=== PATIENT | female | born 1980 | race Caucasian/White ===

== ENCOUNTER → 2017-02-04 | Outpatient (CLI) | payer OTHER | LOC: FIMAGING 13:29 | PROVIDERS: ATTEND Midwife | DX: N94.6 Dysmenorrhea, unspecified (principal); N92.6 Irregular menstruation, unspecified; R10.2 Pelvic and perineal pain ==

== ENCOUNTER 2017-04-06 06:59 | Observation (INO) | payer OTHER ==
[2017-04-06] MEDS ORDERED: MIDAZOLAM 2 MG/2 ML VIAL IVP ONE (07:04)
[2017-04-06] MEDS ORDERED: NS 1,000 ML IV ONE (07:04)
[2017-04-06] MEDS ORDERED: HEPARIN 10,000 UNIT/10 ML MDV ONE (07:19)
[2017-04-06] MEDS ORDERED: LIDOCAINE 1% 300 MG/30 ML SDV ONE (07:19)
[2017-04-06] MEDS ORDERED: BUPIVACAINE 0.5% 30 ML SDV ONE (07:19)
[2017-04-06] MEDS ORDERED: ISOPROTERENOL HCL 0.2 MG/ML 5ML AMP ONE (07:19)
--- NOTE | 2017-04-06 07:20 | CPEKG ---
Heart Rate: 67 RR Interval: 896 P-R Interval: 144 QRSD Interval: 106 QT Interval: 432 QTC Interval: 456 P [place]: 67 QRS [place]: 109 T Wave [place]: -2 EKG Severity - ABNORMAL ECG - EKG Impression: SINUS RHYTHM Electronically Signed By: Senthil Baez 06-Apr-2017 13:58:51
[2017-04-06 07:34] LABS: % IMMATURE GRANULYOCYTES 0.2 % (0.0-1.1); ABSOLUTE IMMATURE GRANULOCYTES 0.01 10^3/uL (0.00-0.10); ADD DIFF? NO; ADD MORPH? NO; ADD SCAN? NO; ATYPICAL LYMPHOCYTE FLAG 20 (0-99); FRAGMENT RBC FLAG 0 (0-99); HEMATOCRIT 38.5 % (38.0-47.0); HEMOGLOBIN 13.4 g/dL (12.6-16.3); LEFT SHIFT FLG 0 (0-99); LIPEMIA HEMOLYSIS FLAG 90 (0-99); MEAN CELL HEMOGLOBIN 31.7 pg (27.9-34.1); MEAN CELL HEMOGLOBIN CONCENTR. 34.8 g/dL (32.4-36.7); MEAN PLATELET VOLUME 11.3 fL (8.7-11.7); PLATELET CLUMPS FLAG 40 (0-99); PLATELET COUNT 221 10^3/uL (150-400); RED BLOOD CELL COUNT 4.23 10^6/uL (4.18-5.33); RED CELL DISTRIBUTION WIDTH 12.5 % (11.5-15.2)
[2017-04-06 07:50] LABS: ANION GAP 13 mEq/L (8-16); CALCIUM 9.5 mg/dL (8.5-10.4); CARBON DIOXIDE 18 mEq/l (22-31); CHLORIDE 110 mEq/L (97-110); CREATININE 0.7 mg/dL (0.6-1.0); GLOMERULAR FILTRATION RATE > 60; GLUCOSE 97 mg/dL (70-100); MAGNESIUM 1.8 mg/dL (1.6-2.3); POTASSIUM 3.7 mEq/L (3.5-5.2); SODIUM 141 mEq/L (134-144)
[2017-04-06 07:52] LABS: INR 1.14 (0.83-1.16); PROTIME(PATIENT) 14.5 SEC (12.0-15.0)
[2017-04-06 07:53] LABS: APTT 30.6 SEC (23.0-38.0)
[2017-04-06] MEDS ORDERED: fentaNYL 100 MCG/2 ML INJ ONE (08:16)
[2017-04-06] MEDS ORDERED: ROCURONIUM 100 MG/10 ML VIAL ONE (08:16)
[2017-04-06] MEDS ORDERED: DEXAMETHASONE 4 MG/ML VIAL ONE (08:16)
[2017-04-06] MEDS ORDERED: PROPOFOL/EMULSION 500 MG/50 ML BOTTLE IV ONE ×3 (08:16→11:37)
[2017-04-06] MEDS ORDERED: PHENYLEPHRINE HCL 100 MCG/ML SYR ONE (09:37)
[2017-04-06] MEDS ORDERED: ROCURONIUM 50 MG/5 ML VIAL ONE (10:54)
[2017-04-06] MEDS ORDERED: ONDANSETRON 4 MG/2 ML VIAL ONE (12:18)
[2017-04-06] MEDS ORDERED: NEOSTIGMINE METHYLSULFATE 5 MG/5 ML SYR ONE (12:21)
[2017-04-06] MEDS ORDERED: GLYCOPYRROLATE 0.2 MG/1 ML VIAL ONE ×2 (12:21→12:23)
[2017-04-06] MEDS ORDERED: ATROPINE SULFATE 1 MG/10 ML SYR ONE (12:43)
--- NOTE | 2017-04-06 12:51 | CPEKG ---
Heart Rate: 90 RR Interval: 667 P-R Interval: 120 QRSD Interval: 98 QT Interval: 388 QTC Interval: 475 P [place]: 58 QRS [place]: 110 T Wave [place]: 26 EKG Severity - OTHERWISE NORMAL ECG - EKG Impression: SINUS RHYTHM EKG Impression: BORDERLINE RIGHT AXIS DEVIATION Electronically Signed By: Senthil Baez 06-Apr-2017 13:58:32
[2017-04-06] MEDS ORDERED: ACETAMINOPHEN 325 MG TAB PO PRN (13:59)
[2017-04-06] MEDS ORDERED: ONDANSETRON 4 MG/2 ML VIAL IVP PRN (13:59)
[2017-04-06 14:53] LABS: ANION GAP 10 mEq/L (8-16); CALCIUM 8.5 mg/dL (8.5-10.4); CARBON DIOXIDE 19 mEq/l (22-31); CHLORIDE 114 mEq/L (97-110); CREATININE 0.7 mg/dL (0.6-1.0); GLOMERULAR FILTRATION RATE > 60; GLUCOSE 98 mg/dL (70-100); MAGNESIUM 1.8 mg/dL (1.6-2.3); POTASSIUM 4.5 mEq/L (3.5-5.2); SODIUM 143 mEq/L (134-144)
[2017-04-06 23:06] VITALS: TEMP 97.9
[2017-04-07 04:13] VITALS: O2SAT 96
[2017-04-07 04:42] LABS: % IMMATURE GRANULYOCYTES 0.2 % (0.0-1.1); ABSOLUTE IMMATURE GRANULOCYTES 0.02 10^3/uL (0.00-0.10); ADD DIFF? NO; ADD MORPH? NO; ADD SCAN? NO; ATYPICAL LYMPHOCYTE FLAG 0 (0-99); FRAGMENT RBC FLAG 0 (0-99); HEMATOCRIT 35.6 % (38.0-47.0); HEMOGLOBIN 12.2 g/dL (12.6-16.3); INR 1.25 (0.83-1.16); LEFT SHIFT FLG 0 (0-99); LIPEMIA HEMOLYSIS FLAG 90 (0-99); MEAN CELL HEMOGLOBIN 31.9 pg (27.9-34.1); MEAN CELL HEMOGLOBIN CONCENTR. 34.3 g/dL (32.4-36.7); PLATELET CLUMPS FLAG 0 (0-99); PLATELET COUNT 186 10^3/uL (150-400); PROTIME(PATIENT) 15.7 SEC (12.0-15.0); RED BLOOD CELL COUNT 3.83 10^6/uL (4.18-5.33); RED CELL DISTRIBUTION WIDTH 12.7 % (11.5-15.2)
[2017-04-07 04:52] LABS: ANION GAP 8 mEq/L (8-16); CARBON DIOXIDE 20 mEq/l (22-31); CHLORIDE 110 mEq/L (97-110); CREATININE 0.8 mg/dL (0.6-1.0); GLOMERULAR FILTRATION RATE > 60; GLUCOSE 90 mg/dL (70-100); POTASSIUM 3.6 mEq/L (3.5-5.2); SODIUM 138 mEq/L (134-144)
[2017-04-07 05:00] LABS: CREATINE KINASE-MB FRACTION 0.99 ng/mL (0-3.19); TROPONIN I 0.258 ng/mL (0-0.034)
[2017-04-07 08:33] VITALS: BP 117/73; PULSE 71; RESP 13
[2017-04-07] MEDS ORDERED: ASPIRIN 81 MG CHEWABLE TAB PO SCH (09:00)
--- NOTE | 2017-04-07 09:05 | EPPROC ---
Electrophysiology Procedure Note: ELECTROPHYSIOLOGIC STUDY AND CATHETER MEDIATED ABLATION FOR SUBEUSTACHIAN ISTHMUS DEPENDENT COUNTERCLOCKWISE ATRIAL FLUTTER and TYPICAL SLOW FAST AVNRT: INDICATION: Recurrent atrial flutter PROCEDURES PERFORMED: 30479-64 EP evaluation with RA/RV/LA pace/record, with arrhythmia induction 18817-46 EP evaluation with RA/RV pace record, insert/reposition catheter, with arrhythmia induction 17487 SVT ablation Second arrhythmia 21593 3D mapping Fluoroscopy Catheters & Anesthesia: The patient arrived in the Electrophysiology Laboratory in the fasting state. The right clavicular region, right groin, and left groin area were prepped and draped in the usual sterile manner. Anesthesiologist Dr. Denton administered general anesthesia. Appropriate non-invasive blood pressure, pulse oximetry and end-tidal CO2 monitoring was established. All catheters were placed percutaneously using the modified Seldinger technique , and advanced into position under fluoroscopic guidance. One #7 Serbian deflectable octapolar electrode catheter was advanced to the His-bundle position via the left femoral vein (2mm spacing; except the proximal ring which was 25cm from the tip used for unipolar recordings). One #7 Serbian deflectable catheter with 10 pairs of electrodes was placed via the left femoral vein into the coronary sinus. One # 7 Serbian Halo catheter was inserted through the right femoral vein and was placed at the tricuspid annulus. Heparin was administered to keep ACT > 200 seconds. Programmed stimulation was performed from the right atrium, coronary sinus ( left atrium) and right ventricle. Parahisian pacing demonstrated all retrograde conduction over the AV node. On arrival to the Electrophysiology Laboratory the patient was in sinus rhythm. Atrial flutter, CL 240-250 ms was easily induced by CS pacing. Entrainment mapping from lateral TA, septal TA, proximal CS and distal CS confirmed cavotricuspid isthmus dependent atrial flutter. In preparation for ablation of typical atrial flutter, a high-resolution 3D (3 dimensional) Carto electroanatomical map of the sub-Eustachian isthmus and right atrium was obtained during pacing of the posterolateral coronary sinus. For ablation of typical atrial flutter, one #8.5 SR0 sheath was placed in the right atrium. A #8 Serbian deflectable quadrapolar electrode catheter (2mm-5mm- 2mm spacing) with 3.5 mm irrigated tip electrode and location sensor for the Biosense mapping system was inserted in the long sheath and advanced to the right atrium. Radiofrequency applications were applied between the tricuspid annulus at 0630 oclock as seen in the DIVEHI view and the inferior vena cava. Ablation was difficult due to small isthmus and the CT isthmus being much more inferiorly located than the CS. SR0 and Ramp sheaths, 3.5 mm irrigated catheter and 8 mm non irrigated catheter had to be used. Conduction block was achieved across the CT isthmus. Following ablation of the atrial flutter, programmed atrial stimulation was performed in the baseline state and during infusion of isoproterenol 2 mcg/min. AVNRT was induced. CL 400-420 ms. SL2 sheath was placed and using 3.5 mm irrigated ablation catheter slow pathway ablation was performed. Antegrade conduction over slow AV shorty pathway and AVNRT were eliminated. The catheters were removed. Long sheath was changed to short 9Fr sheath. The patient was transferred to the cardiovascular holding area in stable condition. Vascular access sheaths were removed in the holding area. There were no apparent complications. Results: A. Spontaneous Intervals: Pre ablation SCL 970 ms AH _55_ ms HV 40 ms Post ablation SCL 830 ms AH 55 ms HV 40 ms B. Antegrade AV shorty function (decremental pacing) Pre ablation FPERP 480 ms SPERP 470 ms WBB CL 460 ms (AH jump from 180 ms to 270 ms at FPERP) Post ablation FPERP 450 ms WBB CL 440 ms C. Retrograde AV shorty function (decremental pacing) Pre ablation FPERP 430 ms WBB CL 420 ms CONCLUSIONS: * Cavotricuspid isthmus dependent counterclockwise atrial flutter. * Successful catheter mediated ablation of cavotricuspid isthmus achieving bi- directional conduction block across cavotricuspid isthmus. * Typical (slow/fast) AVNRT. Successful ablation of slow AV shorty pathway eliminating all antegrade conduction over slow AV shorty pathway and inducibility of AVNRT * No atrial arrhythmias inducible post ablation. * No apparent complications. Patient Problems: Problems Problem Status Onset Supraventricular tachycardia Acute Missed with demise before 20 completed weeks of gestation Acute
--- NOTE | 2017-04-07 09:14 | CPEKG ---
Heart Rate: 64 RR Interval: 938 P-R Interval: 164 QRSD Interval: 102 QT Interval: 420 QTC Interval: 434 P [place]: 54 QRS [place]: 102 T Wave [place]: -38 EKG Severity - ABNORMAL ECG - EKG Impression: SINUS RHYTHM EKG Impression: BORDERLINE RIGHT AXIS DEVIATION EKG Impression: NONSPECIFIC T ABNORMALITIES, INFERIOR LEADS Electronically Signed By: Senthil Baez 07-Apr-2017 17:25:21
--- NOTE | 2017-04-07 09:22 | ECHO ---
[id number] + + [address] : : [place] [address] : : [phone] + + Adult Echocardiographic Report + ---+ :Name: CRISTIAN DENISELeroy Date: 04/07/2017 08:04 AM : : Hospital Admission Number: [id number] Location: 215: :: 1980 Gender: Female Height: 72 in : :Age: 36 yrs Race: WH Weight: 162 lb : :Reason For Study: F/U post EP study : : BSA: 1.9 meters2 : + ---+ MMode/2D Measurements \T\ Calculations IVSd: 0.66 cm LVIDd: 5.6 cm FS: 40.1 % Ao root diam: LVPWd: 0.64 cm LVIDs: 3.4 cm EDV(Teich): 3.1 cm 153.6 ml LA dimension: ESV(Teich): 3.4 cm 45.9 ml EF(Teich): 70.1 % LVLd ap4: 8.7 cm SV(MOD-sp4): EDV(MOD-sp4): 72.0 ml 97.0 ml LVLs ap4: 6.8 cm ESV(MOD-sp4): 25.0 ml EF(MOD-sp4): 74.2 % Normal Measurement Values: + + :LVIDd (3.5-5.7cm) IVSd (0.6-1.1cm) LVPWd (0.6-1.1cm) Aortic Root (2.0-3.7cm)Left Atrium (1.5-4.0cm): :LV Vol(d) (76-115ml) LV Vol(s) (29-48ml) Ejec Fraction (50-65%)PV Ron (0.6- 1.2m/s) TV Ron (0.4-1.0m/s) : :MV E Ron (0.8-1.0m/s)MV A Ron (0.3-1.0m/s)LVOT Ron (0.7-1.2m/s) Asc Ao Ron ( 0.9-1.8m/s) : + + Doppler Measurements \T\ Calculations MV E max ron: 77.0 cm/sec Ao V2 max: 108.6 cm/sec TR max ron: 218.5 cm/sec MV A max ron: 40.0 cm/sec Ao max P.7 mmHg TR max P.1 mmHg MV E/A: 1.9 RAP systole: 5.0 mmHg RVSP(TR): 24.1 mmHg Left Ventricle The left ventricle is normal in size. There is normal left ventricular wall thickness. Left ventricular systolic function is normal. Ejection Fraction = 60-65%. No regional wall motion abnormalities noted. Right Ventricle The right ventricle is mildly dilated. The right ventricular systolic function is normal. Atria The left atrial size is normal. The right atrium is mildly dilated. Mitral Valve The mitral valve is normal in structure and function. There is no evidence of mitral valve prolapse. There is no mitral valve stenosis. There is trace mitral regurgitation. Tricuspid Valve Normal tricuspid valve. There is mild tricuspid regurgitation. Right ventricular systolic pressure is normal. Aortic Valve The aortic valve is trileaflet. There is no aortic stenosis. There is no aortic insufficiency. Pulmonic Valve The pulmonic valve is not well visualized. There is no pulmonic valvular regurgitation. Great Vessels The aortic root is normal size. Pericardium/Pleural Trivial anterior pericardial effusion (seen on previous echo 11-02-16). Conclusion A complete two-dimensional transthoracic echocardiogram was performed (2D, M-mode, Doppler and color flow Doppler). Left ventricular systolic function is normal. Ejection Fraction = 60-65%. The right atrium is mildly dilated. There is trace mitral regurgitation. There is mild tricuspid regurgitation. Right ventricular systolic pressure is normal. Trivial anterior pericardial effusion (seen on previous echo 11-02-16). Final Reading Physician: Dr Camila Ferguson electronically signed on 04/07/2017 09:21 AM Ordering Physician: Senthil Baez Performed By: Radha Plata RDCS
--- NOTE | 2017-04-07 19:34 | GDS ---
[f rep st] DISCHARGE SUMMARY DISCHARGE DIAGNOSES: 1. Atrial flutter, status post ablation. 2. Atrioventricular shorty reentry tachycardia, status post ablation. 3. History of pericarditis. 4. Inflammatory arthritis. BRIEF HISTORY: This is a 36-year-old woman with a history of inflammatory arthritis and trace pericardial effusion with pericarditis. She was started on Enbrel for arthritis. She was having symptoms of atrial flutter that were documented on [facility] despite decreased inflammation symptoms after starting Enbrel. Palpitation symptoms were occurring daily. She was referred by Dr. Doss to Dr. Baez for treatment. HOSPITAL COURSE: Dr. Baez performed a successful ablation of the cavotricuspid isthmus, achieving bidirectional block across the cavotricuspid isthmus. Typical AVNRT was induced. Successful ablation of slow AV shorty pathway eliminating all antegrade conduction over the slow AV shorty pathway was achieved. No inducible atrial arrhythmias after the ablation. Overnight, she did well without any bleeding at her groin sites. Vital signs are stable. She has no chest pain or shortness of breath. Groin sites are without bleeding, ecchymosis, or bruit. TESTING DONE: 1. Echocardiogram: Ejection fraction is 60% to 65%. Trace MR. Mild TR. There is trivial anterior pericardial effusion that is unchanged since last echo in October. 2. EKG: Demonstrates sinus rhythm with nonspecific ST flattening which was seen on prior EKGs. LABORATORY DATA: WBC 8.2, hemoglobin 12.2, hematocrit 35.6, platelets 186,000. PT is 15.7, INR is 1.25. Sodium 138, potassium 3.6, chloride 110, bicarb 20, BUN 10, creatinine 0.8, glucose 90. CK 44, CK-MB fraction 0.99, troponin is 0.258; these are elevated and to be expected post ablation. PHYSICAL EXAM: VITAL SIGNS: Blood pressure is 111/55, pulse is 82, respirations 20, temperature 36.6, O2 saturation on room air is 96%. GENERAL: She is alert and oriented in no acute distress, lying in bed. CARDIAC: Regular rate and rhythm without murmur, rub, or gallop. LUNGS: Clear to auscultation. ABDOMEN: Soft AND nontender. Groin sites are without bleeding. EXTREMITIES: Warm. No discoloration. No lower extremity edema. Bilateral + 2 pedal pulses. Discharge medications: See discharge medication reconciliation form. Of note, she will not restart Enbrel for 1 week. Daily aspirin for 6 weeks post ablation. Ibuprofen as needed. DISCHARGE INSTRUCTIONS: Activity restrictions were reviewed, and she was given written instructions at the time of discharge for no lifting over 10 pounds for 1 week, no extended sitting for 6 weeks, and to get up and walk around every 45 minutes for the next 6 weeks. FOLLOWUP: She has a followup with Dr. Baez on April 21, 2017, at 4:00. /[id number]/MODL MTDD
== END 2017-04-07 11:35 | disposition home or self-care (01) ==
LOC: FCATH 06:59 → F2W 12:39
PROVIDERS: ADMIT Internal Medicine Cardiovascular Disease; ATTEND Internal Medicine Cardiovascular Disease
DX: I48.92 Unspecified atrial flutter (principal); I47.1 Supraventricular tachycardia; M06.4 Inflammatory polyarthropathy; L40.9 Psoriasis, unspecified; Z86.79 Personal history of other diseases of the circulatory system; Z79.82 Long term (current) use of aspirin
CPT/HCPCS: 93005; 93306; 93312; 93613; 93621; 93623; 93653; 93655; C1731; C1732; G0378; C1893; J0461; J1100; J1644; J2370; J2405; J2704; J2710; J3010

== ENCOUNTER 2017-04-12 12:39 | Emergency (ER) | payer OTHER ==
--- NOTE | 2017-04-12 12:59 | EDPHY ---
H & P Stated Complaint: cardiac ablation 04/06 for a flutter/continued r leg soreness Time Seen by Provider: 04/12/17 12:58 HPI/ROS: CHIEF COMPLAINT: Right calf pain HISTORY OF PRESENT ILLNESS: The patient presents to the ED with 3 day history of right calf pain. The patient is approximately 1 week status post right groin arterial puncture for a cardiac ablation for symptomatic atrial fibrillation. She has been recovering well. She has no complaints of groin pain, swelling or fever. The patient complains of pain throughout the posterior portion of her calf. The patient denies fever. She denies recent fall or trauma. The patient reports her symptoms are moderate in nature. REVIEW OF SYSTEMS: A comprehensive 10 point review of systems is otherwise negative aside from elements mentioned in the history of present illness. Source: Patient - Personal History LMP (Females 10-55): 1-7 Days Ago Current Tetanus/Diphtheria Vaccine: Yes - Medical/Surgical History Hx Asthma: No Hx Chronic Respiratory Disease: No Hx Diabetes: No Hx Cardiac Disease: Yes Hx Renal Disease: No Hx Cirrhosis: No Hx Alcoholism: No Hx HIV/AIDS: No Hx Splenectomy or Spleen Trauma: No Other PMH: arthritis psoriadic,a flutter/ablation - Social History Smoking Status: Never smoked - Physical Exam Exam: General Appearance: Alert, no distress Eyes: Pupils equal and round no pallor or injection ENT, Mouth: Mucous membranes moist Respiratory: There are no retractions, lungs are clear to auscultation Cardiovascular: Regular rate and rhythm Gastrointestinal: Abdomen is soft and nontender, no masses, bowel sounds normal Neurological: Sensation intact to light touch throughout the right lower extremity, 5/5 strength throughout the right lower extremity Skin: Warm and dry, no rashes Musculoskeletal: Neck is supple nontender Extremities: Right calf tenderness, no asymmetry, 2+ dorsalis pedis and posterior tibial pulses, 2+ popliteal pulse, 2+ femoral pulse Constitutional: Initial Vital Signs Temperature (C) 36.9 C 04/12/17 12:42 Heart Rate 75 04/12/17 12:42 Respiratory Rate 17 04/12/17 12:42 Blood Pressure 115/71 04/12/17 12:42 O2 Sat (%) 99 04/12/17 12:42 O2 Delivery Mode Room Air Allergies/Adverse Reactions: No Known Allergies Allergy (Verified 04/12/17 12:41) Home Medications: Medication Instructions Recorded Aspirin [Aspirin 81mg (*)] 81 mg PO DAILY 04/06/17 Etanercept [Enbrel] 25 mg SQ TU 04/06/17 Herbals/Supplements -Info Only 1 ea PO DAILY 04/06/17 [place]-3 Fatty Acids [Fish Oil 1000 1,000 mg PO DAILY 04/06/17 mg (*)] Medical Decision Making - Diagnostics Imaging Results: Right lower extremity ultrasound: Images reviewed by myself and discussed with radiologist Dr. Lara. Negative for DVT or other explanation for pain. ED Course/Re-evaluation: The patient presents to the emergency department with complaints of acute right calf pain for the past 2 days. The patient has no complaints of chest pain or shortness of breath. She has no vital sign abnormalities. She has minimal tenderness noted on physical exam. There is no clinical evidence of an arterial thrombosis. The patient's groin is well-appearing without evidence of hematoma. The patient has intact distal pulses. The patient is noted to be neurologically intact. The patient was taken for a right lower extremity ultrasound which fortunately demonstrated no evidence of a Cason cyst or DVT. At this point time I do feel the patient can safely be discharged home with instructions to take Tylenol and ibuprofen I have advised her to repeat her ultrasound in 2 weeks for any ongoing symptoms. She should return to the ED sooner for any increasing pain, fever, numbness, weakness or other concerns. Differential Diagnosis: Differential diagnosis considered includes DVT, cellulitis, arterial thrombosis , Cason's cyst, myofascial strain Departure - Departure Disposition: Home, Routine, Self-Care Clinical Impression: Right calf pain Condition: Good Instructions: Musculoskeletal Pain (ED) Additional Instructions: 1. Tylenol as needed for pain. 2. Your ultrasound demonstrates no evidence of a blood clot. Please return to the ED for any worsening symptoms, numbness, weakness or other concerns. 3. I recommend repeating your ultrasound in 2 weeks for any ongoing symptoms. Please schedule a follow-up appointment with your primary care provider for recheck in the week. Referrals: Corin Mejia MD [Primary Care Provider] - As per Instructions
[2017-04-12 14:21] VITALS: BP 110/72; PULSE 71; RESP 16; TEMP 98.1; O2SAT 97
== END 2017-04-12 14:19 | disposition home or self-care (01) ==
DX: M79.661 Pain in right lower leg (principal); Z79.82 Long term (current) use of aspirin

== ENCOUNTER → 2017-07-18 | Outpatient (CLI) | payer OTHER | LOC: BMCIMAGING 14:21 | PROVIDERS: ATTEND Internal Medicine Rheumatology | DX: M54.9 Dorsalgia, unspecified (principal); L40.50 Arthropathic psoriasis, unspecified ==

== ENCOUNTER → 2017-08-10 | Outpatient (CLI) | payer OTHER | LOC: FIMAGING 14:10 | PROVIDERS: ATTEND Internal Medicine | DX: N63.22 Unspecified lump in the left breast, upper inner quadrant (principal); Z80.3 Family history of malignant neoplasm of breast | CPT/HCPCS: G0202; G0204 ==

== ENCOUNTER 2017-08-19 13:02 | Day surgery (SDC) | payer OTHER ==
[2017-08-19] MEDS ORDERED: ceFAZolin 2 GM/SWFI 2 GM/20 ML SYR IVP ONE (13:12)
[2017-08-19] MEDS ORDERED: LR 1,000 ML IV SCH (13:12)
[2017-08-19] MEDS ORDERED: LR 1,000 ML IV ONE (13:13)
[2017-08-19] MEDS ORDERED: LIDOCAINE 1% 300 MG/30 ML SDV ONE ×2 (14:09→15:12)
[2017-08-19] MEDS ORDERED: MIDAZOLAM 2 MG/2 ML VIAL IVP ONE (15:07)
--- NOTE | 2017-08-19 15:07 | PDANEPAE ---
ANE History of Present Illness Breast mass ANE Past Medical History - Cardiovascular History Hx Hypertension: No Hx Arrhythmias: No Hx Chest Pain: No Hx Coronary Artery / Peripheral Vascular Disease: No Hx CHF / Valvular Disease: No Hx Palpitations: No Cardiovascular History Comment: "occ skipped beat" since ablation for flutter and SVT 04-09 - Pulmonary History Hx COPD: No Hx Asthma/Reactive Airway Disease: No Hx Recent Upper Respiratory Infection: No Hx Oxygen in Use at Home: No Hx Sleep Apnea: No Sleep Apnea Screening Result - Last Documented: Negative - Neurologic History Hx Cerebrovascular Accident: No Hx Seizures: No Hx Dementia: No - Endocrine History Hx Diabetes: No - Renal History Hx Renal Disorders: No - Liver History Hx Hepatic Disorders: No - Neurological & Psychiatric Hx Hx Neurological and Psychiatric Disorders: No - Cancer History Hx Cancer: No - Congenital Disorder History Hx Congenital Disorders: No - GI History Hx Gastrointestinal Disorders: No - Other Health History Other Health History: L breast lump. psoriatic arthritis-Enbrel decreases joint swelling. - Chronic Pain History Chronic Pain: Yes - Surgical History Prior Surgeries: D and C x2 '13, 11-16. cardiac ablation,JAVON 04-07- ANE Review of Systems Review of Systems: - Exercise capacity METS (RN): 4 METS ANE Patient History - Allergies Allergies/Adverse Reactions: No Known Allergies Allergy (Verified 08/17/17 13:53) - Home Medications Home medications: home medication list seen and reviewed Home Medications: Aspirin [Aspirin 81mg (*)] 81 mg PO DAILY 04/06/17 [Last Taken 07/08/17] Etanercept [Enbrel] 25 mg SQ TU 04/06/17 [Last Taken 08/05/17] Herbals/Supplements -Info Only 1 ea PO DAILY 04/06/17 [Last Taken Unknown] [place]-3 Fatty Acids [Fish Oil 1000 mg (*)] 1,000 mg PO DAILY 04/06/17 [Last Taken 08/05/17] - NPO status NPO Since - Liquids (Date): 08/19/17 NPO Since - Liquids (Time): 11:00 NPO Since - Solids (Date): 08/18/17 NPO Since - Solids (Time): 21:00 - Anes Hx Anes Hx: no prior problems - Smoking Hx Smoking Status: Never smoked ANE Labs/Vital Signs - Vital Signs Blood Pressure: 120/67 Heart Rate: 56 Respiratory Rate: 16 O2 Sat (%): 96 Height: 185.42 cm Weight: 74.843 kg ANE Physical Exam - Airway Neck exam: FROM Mallampati Score: Class 1 Mouth exam: normal dental/mouth exam - Pulmonary Pulmonary: no respiratory distress - Cardiovascular Cardiovascular: regular rate and rhythym - ASA Status ASA Status: II ANE Anesthesia Plan Anesthesia Plan: MAC
[2017-08-19] MEDS ORDERED: BUPIVACAINE 0.25% 30 ML SDV ONE (15:11)
[2017-08-19] MEDS ORDERED: PROPOFOL/EMULSION 500 MG/50 ML BOTTLE IV ONE (15:12)
[2017-08-19] MEDS: BUPIVACAINE 0.25% 30 ML SDV ONE ×2 (15:56→16:11)
--- NOTE | 2017-08-19 16:25 | POSTANESTH ---
Post Anesthetic Evaluation Cardiovascular Status: Normal, Stable, Similar to Pre-Op Cond (Pt had random PVC 's and PAC's during procedure, stable throughout surgery) Respiratory Status: Normal, Stable Level of Consciousness/Mental Status: Can Participate in Eval, Alert and Oriented Pain Control: Adequate, Prn Tx Ordered Nausea/Vomiting Control: Adequate, Prn Tx Ordered Complications Possibly Related to Anesthesia: None Noted
[2017-08-19] MEDS ORDERED: OXYCODONE/APAP 5/325 TAB PO PRN (16:27)
[2017-08-19] MEDS ORDERED: ONDANSETRON DISINTEGRATING 4 MG TAB PO PRN (16:27)
--- NOTE | 2017-08-19 16:32 | POSTOPPROG ---
Post Op Note Date of Operation: 08/19/17 Surgeon: Abhijeet Santos (, FACS) Anesthesiologist: Abelardo Perdomo MD Anesthesia: Other (Specify) (MAC) Pre-op Diagnosis: left breast mass Post-op Diagnosis: same Procedure: left excisional breast biopsy Findings: left subareolar dense fibroglandular breast tissue Inf/Abcess present in the surg proc area at time of surgery?: No EBL: Minimal (10 ml) Complications: none Specimen(s): left breast tissue UOQ/subareolar
[2017-08-19 16:33] VITALS: TEMP 97.7
[2017-08-19 17:24] VITALS: PULSE 62; RESP 14; O2SAT 97
[2017-08-19] MEDS ORDERED: ONDANSETRON DISINTEGRATING 4 MG TAB ONE (18:04)
[2017-08-19 18:14] VITALS: BP 96/49
[2017-08-19] MEDS ORDERED: SENNOSIDES/DOCUSATE SODIUM TAB PO SCH (21:00)
--- NOTE | 2017-08-19 21:49 | GOP ---
[f rep st] OPERATIVE REPORT DATE OF OPERATION: 08/19/2017 SURGEON: Abhijeet Santos MD, FACS ANESTHESIA: Monitored anesthesia care. ANESTHESIOLOGIST: Vu Perdomo MD PREOPERATIVE DIAGNOSIS: Left breast mass. POSTOPERATIVE DIAGNOSIS: Left breast mass. PROCEDURE PERFORMED: Left excisional breast biopsy. FINDINGS: Dense fibrous fibroglandular tissue in the left subareolar breast tissue at the area of the palpable mass, excised and submitted for permanent section. ESTIMATED BLOOD LOSS: 10 cc. DESCRIPTION OF PROCEDURE: After informed consent was obtained, the patient was brought to the operating room and placed under deep sedation. The left breast was prepped and draped in the usual fashion. The area of the palpable mass was marked on the skin with a marking pen preoperatively and confirmed by the patient. This was a firm narrow ridge of tissue at approximately 2 o'clock position at the areolar border and was nontender with negative findings on imaging. It measured approximately 3 x 5 mm. Before proceeding, a time-out and identification of the patient was performed. 0.25% Marcaine and 1% lidocaine were infiltrated in the subareolar tissues. The areolar border was incised with a scalpel between the approximately 12 and 3 o'clock position and dissection carried out into the subareolar plane. The glandular tissue where the palpable mass was located was grasped with an Allis forceps and further local anesthetic infiltrated into the deep breast tissue centrally in the breast. Approximately 1 x 1 x 1.5 cm wedge of breast tissue was excised in the location of the palpable mass and was observed to be dense fibrous fibroglandular and ductal tissue. I did not bisect the specimen to inspect the interior but submitted it for permanent section. There was no other palpable mass within this quadrant of the breast. Hemostasis was secured with cautery. Subcutaneous tissues were approximated with 3-0 Monocryl suture. Skin was closed with 4-0 Monocryl suture in a subcuticular fashion. Topical Dermabond was applied. The patient was returned to the recovery room in satisfactory condition. Needle, sponge, and instrument count were correct. COMPLICATIONS: None. /[id number]/MODL MTDD
== END 2017-08-19 18:10 | disposition home or self-care (01) ==
LOC: FSGY 13:02
PROVIDERS: ATTEND Surgery
PROC: 0HBU0ZX Excision of Left Breast, Open Approach, Diagnostic (ICD-10-PCS; principal; 2017-08-19 14:30)
DX: N63.42 Unspecified lump in left breast, subareolar (principal); Z80.3 Family history of malignant neoplasm of breast
CPT/HCPCS: J0171; J0690; J2250; J2704

== ENCOUNTER → 2018-11-22 | Outpatient (CLI) | payer BC | LOC: FIMAGING 09:37 | PROVIDERS: ATTEND Internal Medicine | DX: Z12.31 Encounter for screening mammogram for malignant neoplasm of breast (principal); Z80.3 Family history of malignant neoplasm of breast ==